=== PATIENT | female | born 1980 | race Two or more races ===

== ENCOUNTER 2024-04-08 20:59 | Emergency (ER) | payer MEDICAID, SELFPAY ==
[2024-04-08 21:01] VITALS: PULSE 87; RESP 16; O2SAT 98
[2024-04-08 21:04] VITALS: BMI 30.9
[2024-04-08 21:11] VITALS: BP 155/94; PULSE 78; RESP 14; TEMP 36.9; O2SAT 100
--- NOTE | 2024-04-08 21:50 | PD.EDALLER ---
ED Allergic Reaction RME/HPI General Chief complaint: Allergic Reaction Stated complaint: ALLERGIC REACTION Time Seen by Provider: 04/08/24 21:10 Arrival date/time: 04/08/24 20:59 This is a 43-year-old female that is brought in by ambulance with complaints of erythema around right eyebrow and eye. Patient states that she ran into a keen yesterday and it had debris/spinters on it. Patient states that some of them were stuck into her skin and she had to pull them out. Pt states there was approx 8 of them. Patient has a history of methamphetamine use in the past. Related Data Previous Rx's ?Medication ?Instructions ?Recorded acetaminophen 500 mg tablet 1,000 mg (2 x 500 mg) PO QID PRN 04/09/24 fever or pain #30 tabs amoxicillin 875 mg-potassium 1 tab PO Q12H periorbital 04/09/24 clavulanate 125 mg tablet cellulitis 10 days #20 tabs ibuprofen 600 mg tablet 600 mg PO Q6H PRN fever or pain 5 04/09/24 days #30 tabs Allergies Allergy/AdvReac Type Severity Reaction Status Date / Time No Known Allergies Allergy Verified 05/21/23 05:58 Review of Systems Review of Systems Systems Reviewed: All systems reviewed, normal except as documented Past Medical History Past Medical History NEUROLOGIC: Negative Neurological Disorders CARDIAC: Negative Cardiac Disorders GASTROINTESTINAL: Negative Gastrointestinal Disorders GENITOURINARY: Negative Genitourinary Disorders or Renal Disease REPRODUCTIVE: Positive Previous Pregnancies MUSCULOSKELETAL: Negative Musculoskeletal Disorders ENDOCRINE: Positive Diabetes Mellitus Type 2 (only gestational diabetes); Negative Endocrine Disorders PSYCHO/SOCIAL: Positive Recreational Drug Use OTHER HISTORY: Positive Blood Transfusions Family History FAMILY HISTORY: Positive Family Cancer Surgical History SURGICAL: Positive Section Social History SMOKING STATUS: Never smoker SECOND HAND EXPOSURE: Yes SUBSTANCE USE: marijuana and methamphetamine ED Exam General General appearance: Present alert and other (moderate distress ) Head Head exam: Present atraumatic Eye Eye exam: Present PERRL, EOMI and other (swelling and erythema around upper and lower eyelid. Swelling under eye swelling upper lid of right eye with erythema. Erythema and swelling around right eyebrow and right episcopal area, pain to light palpation, some scabs around but eyebrow, no drainage so she has chronic surgeon) ENT ENT exam: Present normal exam, normal oropharynx and mucous membranes moist Neck Neck exam: Present normal inspection, full ROM and trachea midline Chest Chest inspection: Present normal inspection and symmetric chest wall rise Respiratory Respiratory exam: Present normal lung sounds bilaterally Cardiovascular Cardiovascular exam: Present regular rate and normal rhythm Abdominal Exam Abdominal exam: Present soft and other (nontender ) Extremities Exam Extremities exam: Present normal inspection and full ROM Back Exam Back exam: Present normal inspection and full ROM Neurological Exam Neurological exam: Present alert and oriented X3 Psychiatric Psychiatric exam: Present normal affect and normal mood Skin Skin exam: Present warm, dry, intact and normal color Course Quality Measures none Orders Category Date Time Status CT Screening NOW Care 04/08/24 21:59 Completed IV [Insert IV] STAT Care 04/08/24 21:52 Completed Visual Acuity X1 Care 04/08/24 22:[address] orbit BI w con Stat Exams 04/08/24 21:58 Completed Blood Culture (Lab) Stat Lab 04/08/24 21:10 Results CBC Stat Lab 04/08/24 21:20 Completed CRP [C-Reactive Protein] Stat Lab 04/08/24 21:20 Completed Comprehensive Metabolic Panel Stat Lab 04/08/24 21:20 Completed HCG,Qualitative Serum Stat Lab 04/08/24 21:20 Completed Lactate (Lactic Acid) Stat Lab 04/08/24 22:40 Completed Path Review Blood Smear Stat Lab 04/08/24 21:20 Completed Procalcitonin Stat Lab 04/08/24 21:20 Completed Sed Rate (ESR) Stat Lab 04/08/24 21:20 Completed Ondansetron Inj [Zofran Inj] Med 04/08/24 22:01 Discontinued 4 mg IV X1 ONE Ondansetron Inj [Zofran Inj] Med 04/08/24 22:01 Discontinued 4 mg IV X1 ONE Piper/Tazo Inj [Zosyn Inj] 3.375 gm Med 04/08/24 21:58 Discontinued Sodium Chloride 0.9% (P) [Ns 0.9% (P)] 50 ml IV X1 Vancomycin Pharmacy to Dose Med 04/09/24 09:00 Discontinued 1 each IV QDAY Vancomycin/Ns 1 gm Ivpb 200 ml Med 04/08/24 22:15 Discontinued IV Q100M fentaNYL INJ [Sublimaze Inj] Med 04/08/24 22:01 Discontinued 50 mcg IM X1 ONE fentaNYL INJ [Sublimaze Inj] Med 04/08/24 22:06 Discontinued 50 mcg IVP X1 ONE Vital Signs Vital signs: Vital Signs Temperature 98.5 F 04/08/24 21:11 Pulse Rate 78 04/08/24 21:11 Respiratory Rate 14 04/08/24 21:11 Blood Pressure 155/94 H 04/08/24 21:11 Pulse Oximetry (%) 100 04/08/24 21:11 Oxygen Delivery Method Room Air 04/08/24 21:11 Allergic Reaction MDM Narrative MDM Narrative:: will assume care at 11 PM. Labs pending and CT of the orbits pending. Patient data External records reviewed:: [facility] previous records Clinical information provided by:: patient Social determinants that could affect healthcare access:: none Patient has the following chronic illnesses:: none How is presenting disease/condition affected by chronic disease/condition?: no chronic disease Evaluation data The following diagnostics were reviewed and interpreted by me:: lab results and radiology exam(s) Lab and/or radiology exams considered but not ordered:: none Interpretation Summary: see note Medications / Prescriptions Medications or Prescriptions considered but not ordered:: none Medication administrations:: Medication Administration History Discontinued Medications Fentanyl Citrate (Fentanyl Cit Inj 50 Mcg/Ml Amp 2ml) 50 mcg IM X1 ONE Stop: 04/08/24 22:02 Last Admin: 04/08/24 22:06 Dose: Not Given Documented By: HERBERTH Non-Admin Reason: ORDER REPLACED Fentanyl Citrate (Fentanyl Cit Inj 50 Mcg/Ml Amp 2ml) 50 mcg IVP X1 ONE Stop: 04/08/24 22:07 Last Admin: 04/08/24 22:12 Dose: 50 mcg Documented By: HERBERTH Piperacillin Sod/Tazobactam (Sod 3.375 gm/ Sodium Chloride) 50 mls @ 100 mls/hr IV X1 ONE Stop: 04/08/24 22:27 Last Infusion: 04/08/24 22:43 Dose: Infused Documented By: Admin: 04/08/24 22:12 Dose: 100 mls/hr Documented By: HERBERTH Vancomycin/Sodium Chloride (Vancomycin/Ns 1 Gm Ivpb) 200 mls @ 120 mls/hr IV Q100M VASHTI Stop: 04/09/24 01:34 Last Infusion: 04/09/24 00:58 Dose: Infused Documented By: Admin: 04/09/24 00:13 Dose: Not Given Documented By: HERBERTH Non-Admin Reason: Cancelled by Provider Admin: 04/08/24 22:45 Dose: 120 mls/hr Documented By: HERBERTH Ondansetron HCl (Ondansetron Inj 2 Mg/Ml Inj 2 Ml) 4 mg IV X1 ONE; Protocol Stop: 04/08/24 22:02 Last Admin: 04/08/24 22:12 Dose: 4 mg Documented By: HERBERTH Ondansetron HCl (Ondansetron Inj 2 Mg/Ml Inj 2 Ml) 4 mg IV X1 ONE; Protocol Stop: 04/08/24 22:02 Last Admin: 04/08/24 22:15 Dose: Not Given Documented By: HERBERTH Non-Admin Reason: Duplicate Medication on eMAR Pharmacy Consult (Vancomycin Pharmacy To Dose 1 Each Each) 1 each IV QDAY VASHTI Stop: 05/09/24 08:59 see [facility] Consultations Consultation(s) initiated? (list below): No Diagnosis Most likely diagnosis given after review of the tests above:: periorbital cellulitis Admission Indicated Admission indicated?: not indicated Admission Request Was there a request for admission?: No Disposition Plan Disposition Plan: Discharge Discharge Attestation Discharge Attestation: The patient and all family members were given an opportunity to ask questions and understood the discharge instructions. Discharge instructions specifically effects, indications for sooner follow up or return to the emergency department, and the expected course of current diagnosis. Patient condition: Stable Discharge Plan Plan Patient Disposition: HOME (Self Care) Disposition Comment: Stable for discharge Patient condition on transfer: Stable Prescriptions/Referrals Prescriptions/Med Rec: New amoxicillin-pot clavulanate 875-125 mg tablet 1 tab PO Q12H 10 Days Qty: 20 0RF acetaminophen 500 mg tablet 1,000 mg PO QID PRN (Reason: fever or pain) Qty: 30 0RF ibuprofen 600 mg tablet 600 mg PO Q6H PRN (Reason: fever or pain) 5 Days Qty: 30 0RF Referrals: Hay Vail MD [Primary Care Provider] - In 1 week Problem List Clinical Impression: Cellulitis, periorbital Patient/Caregiver Discharge Instructions Discharge Activity: activity as tolerated Education Materials: ED Periorbital Cellulitis Additional Instructions: Please return to the emergency department for any worsening or any further medical problems You should pay particular attention to your eye. If you develop pain with just looking around the room then you should definitely come back to the emergency department right away also if you have any visual disturbances return to the ER immediately Be sure to take all of your antibiotics as directed until they are completely gone even if you feel better before that. Please take the Motrin and Tylenol for pain and or fever as directed. Follow-up with your primary care doctor within the next several days please Print Language: Maori Stand Alone Forms: Sophia Award Info., Patient Portal Info Letter PA/RECORD PRODUCER Supervising Physician PA/RECORD PRODUCER Supervising Physician: chiara
--- NOTE | 2024-04-08 21:58 | XR_ITS ---
Examination: CT of orbits, without intravenous contrast. 2-D sagittal reconstructions. 3-D reconstructions. Date and time of exam:April 08, 2024 1121 hrs. Indications: Redness swelling and pain involving the orbits today CTDI: vol (mGy):14.51 DLP: (mGycm):247 Technique: Multiple axial images of maxillofacial region, 3.0 mm slice thickness. 2-D sagittal and coronal reconstructions. 3-D reconstructions. Low dose protocols were performed. One or more of the following dose reduction techniques were used; automated exposure control, adjustment of the mA and/or KV according to patient size, use of iterative reconstruction technique. Findings: Orbital rims appear intact Pronounced soft tissue swelling anterior and lateral to the right optic globe The optic globes however appear intact with no retro-orbital abscess or inflammatory change No soft tissue swelling extends primarily above the right orbit anterior to the frontal bone No foreign body No cortical bone destruction No monik fluid-filled abscess Diffuse edema in the right face including external to the right zygomatic arch right maxilla Impression: Soft tissue swelling anterior and lateral to the right optic globe, anterior to the right frontal bone with diffuse right facial cellulitis No monik soft tissue abscess. The optic globes appear intact No foreign body
[2024-04-08] MEDS: ONDANSETRON INJ 2 MG/ML INJ 2 ML 4 MG IV (22:12)
[2024-04-08] MEDS: PIPER/TAZO INJ 3.375 GM in SODIUM CHLORIDE 0.9% (P) 50 ML IV (22:12)
[2024-04-08] MEDS: fentaNYL CIT INJ 50 mCg/ML AMP 2ML IVP (22:12)
[2024-04-08 22:31] LABS: Basophils # (Auto) 0.1 Thou/mm3 (0.0-0.2); Basophils % (Auto) 0 % (0-2.5); Eosinophils # (Auto) 0.1 Thou/mm3 (0.0-0.5); Eosinophils % (Auto) 1 % (0-10); Hematocrit 31.4 % (36.0-46.0); Hemoglobin 9.4 g/dL (12.0-16.0); Immature Granulocytes % (Auto) 0 % (0-0); Immature Granulocytes Auto 0.05 Thou/mm3 (0.00-0.00); Lymphocytes % (Auto) 14 % (10-50); Mean Corpuscular HGB Conc 29.9 g/dl (31.0-37.0); Mean Corpuscular Hemoglobin 20.2 pg (25.0-35.0); Mean Corpuscular Volume 67 fL (80-100); Monocytes # (Auto) 0.9 Thou/mm3 (0.0-0.8); Monocytes % (Auto) 6 % (0-12); Neutrophils # (Auto) 11.2 Thou/mm3 (1.8-7.7); Neutrophils % (Auto) 79 % (37-80); Nucleated Red Blood Cell % 0 /100 WBC (0); Platelet Count 452 Thou/mm3 (140-440); RDW Standard Deviation 43.4 fL (36.4-46.3); Red Blood Count 4.66 Miln/mm3 (4.00-5.20); White Blood Count 14.3 Thou/mm3 (3.6-11.0)
[2024-04-08 22:42] LABS: Sed Rate (ESR) 58 mm/hr (0-20)
[2024-04-08] MEDS: VANCOMYCIN/NS 1 GM IVPB 200 ML IV (22:45)
[2024-04-08 22:49] LABS: Lactate (Lactic Acid) 0.6 mMol/L (0.4-2.0)
[2024-04-08 23:02] LABS: Alanine Aminotransferase 13 U/L (10-49); Albumin, Serum 4.3 gm/dL (3.5-5.0); Albumin/Globulin Ratio 1.4 (1.2-2.2); Alkaline Phosphatase 82 U/L (46-116); Anion Gap 5 (7-16); Aspartate Amino Transferase 16 U/L (0-34); BUN/Creatinine Ratio 30 Ratio (12-20); Bilirubin,Total 0.5 mg/dL (0.3-1.2); Blood Urea Nitrogen 21 mg/dL (9-23); Calcium 9.5 mg/dL (8.3-10.6); Calcium (Corrected) 9.5 mg/dL (8.5-10.1); Carbon Dioxide 27.2 mMol/L (20.0-31.0); Chloride 107 mMol/L (98-107); Creatinine (Component) 0.7 mg/dL (0.6-1.3); Estimated Creatinine Clearance 108.2 mL/min (>60); Glucose 84 mg/dL (74-106); Osmolality,Calculated 279 (275-295); Potassium 3.4 mMol/L (3.4-5.1); Sodium 139 mMol/L (136-145); Total Protein 7.3 gm/dL (5.7-8.2); eGFR > 60 See Note
[2024-04-08 23:08] LABS: HCG,Qualitative Serum Negative
[2024-04-08 23:27] LABS: Procalcitonin < 0.04 ng/ml (0.0-0.49)
--- NOTE | 2024-04-09 00:06 | PD.EDADDENDU ---
Emergency Room Addendum Addendum Narrative: 2300: Care assumed from Felipa Alfaro NP. Past medical, surgical, social and family history reviewed. Vitals and home medications reviewed. Results and treatment plan discussed. I will assume the care of the patient at this time, pending CT scan results. Please refer to the emergency department record for history and examination. CT scan results as below. Patient is stable to be discharged home at this time. RADIOLOGY RESULTS: [facility] Report Signed Patient: OLGA VALDES [facility].Record#: [id number] Birthdate: 1980 Age/Sex: 43 / F Location: [facility] Attending Dr: Ordering Physician: Felipa Alfaro NP Date of Service: 04/08/24 Procedure(s): CT orbit NIURKA yi Accession Number(s): [id number] cc: Hay Vail MD; Jose Levi MD; Felipa Alfaro NP~ Examination: CT of orbits, without intravenous contrast. 2-D sagittal reconstructions. 3-D reconstructions. Date and time of exam:April 08, 2024 1121 hrs. Indications: Redness swelling and pain involving the orbits today CTDI: vol (mGy):14.51 DLP: (mGycm):247 Technique: Multiple axial images of maxillofacial region, 3.0 mm slice thickness. 2-D sagittal and coronal reconstructions. 3-D reconstructions. Low dose protocols were performed. One or more of the following dose reduction techniques were used; automated exposure control, adjustment of the mA and/or KV according to patient size, use of iterative reconstruction technique. Findings: Orbital rims appear intact Pronounced soft tissue swelling anterior and lateral to the right optic globe The optic globes however appear intact with no retro-orbital abscess or inflammatory change No soft tissue swelling extends primarily above the right orbit anterior to the frontal bone No foreign body No cortical bone destruction No monik fluid-filled abscess Diffuse edema in the right face including external to the right zygomatic arch right maxilla Impression: Soft tissue swelling anterior and lateral to the right optic globe, anterior to the right frontal bone with diffuse right facial cellulitis No monik soft tissue abscess. The optic globes appear intact No foreign body Dictated By: Jose Levi MD Signed By: <Electronically signed by Jose Levi MD in OV> 04/08/24 2470 Critical Care Time: 35 minutes The high probability of sudden, clinically significant deterioration in the patient?s condition required the highest level of my preparedness to intervene urgently. The services I provided to this patient were to treat and/or prevent clinically significant deterioration. Services included the following: chart data review, reviewing nursing notes and/or old charts, documentation time, data warehouse consultant collaboration regarding findings and treatment options, medication orders and management, direct patient care, vital sign assessments and ordering, interpreting and reviewing diagnostic studies and lab tests. Aggregate critical care time includes only time during which I was engaged in work directly related to the patient?s care, as described above, whether at bedside or elsewhere in the Emergency Department. It did not include time spent performing other reported procedures or the services of residents, students, nurses or physician assistants.
[2024-04-09 00:29] VITALS: BP 124/96; PULSE 69; RESP 19; TEMP 36.4; O2SAT 100
[2024-04-09 03:12] LABS: C-Reactive Protein 0.8 mg/dL (0.0-0.9)
[2024-04-09 05:19] LABS: Path Review Blood Smear Sent to Pathologist
== END 2024-04-09 01:07 | disposition home or self-care (01) ==
PROVIDERS: Nurse Practitioner Family; Emergency Provider Emergency Medicine; PCP Family Medicine
DX: L03.213 Periorbital cellulitis (principal)
CPT/HCPCS: 36415; 70481; 80053; 80307; 81001; 83605; 84145; 84703; 85025; 85652; 86140; 87040; 96365; 96366; 96375; 99291; A4649; J2405; J2543; J3010; J3370; J7050; Q9967

== ENCOUNTER 2024-11-29 20:55 | Emergency (ER) | payer MEDICAID, SELFPAY ==
[2024-11-29 21:06] VITALS: BP 135/86; PULSE 103; RESP 20; TEMP 37.2; O2SAT 98
--- NOTE | 2024-11-29 21:10 | XR_ITS ---
Examination: CT brain head without contrast. 2-D sagittal coronal reconstructions Date and time of exam:November 29, 2024, 2148 hours Comparison May 21, 2023 INDICATIONS: Painful lump on the top of the head CTDI: vol (mGy):47.8 DLP: (mGycm):965 Technique: Multiple CT axial sections of the brain have been obtained, 5 mm slice thickness. Contrast has not been administered. 2-D sagittal, coronal reconstructions have been obtained Low dose protocols were performed. One or more of the following dose reduction techniques were used; automated exposure control, adjustment of the mA and/or KV according to patient size, use of iterative reconstruction technique. Findings: No significant ventricular enlargement. Intra-axial or extra-axial hemorrhage density is not seen. No mass effect or midline shift Basal cisterns are not remarkable. Fourth ventricle is midline. Cranial vault intact. Soft tissue swelling parietal scalp which may represent infection Impression: Negative for acute hemorrhage, mass effect or midline shift
--- NOTE | 2024-11-29 22:39 | EDNOTE_ITS ---
ED Skin Abcess FB-RME/HPI General Chief complaint: Skin/Abscess/Foreign Body Stated complaint: BIG HARD PAINUL LUMPT TOP OF HEAD Time Seen by Provider: 11/29/24 21:07 Arrival date/time: 11/29/24 20:55 This is a case of a 44-year-old female who came in the emergency room due to painful lump on the scalp occipital area patient history of present illness started yesterday when the patient felt something insect bite on the scalp and started to have pain redness and swelling on the area of the insect bite due to worsening of the pain this patient decided to sought consult here in the emergency room Limitations: no limitations Related Data Previous Rx's ?Medication ?Instructions ?Recorded acetaminophen 500 mg tablet 1,000 mg (2 x 500 mg) PO Q ID PRN 04/09/24 fever or pain #30 tabs clindamycin HCl 300 mg capsule 300 mg PO Q6H 10 days # 40 caps 11/29/24 ibuprofen 800 mg tablet 800 mg PO Q8H PRN pain #20 t abs 11/29/24 sulfamethoxazole 800 1 tab PO Q12H 10 days #20 ta bs 11/29/24 mg-trimethoprim 160 mg tablet (Bactrim DS) Allergies Allergy/AdvReac Type Severity Reaction Status Date / Time No Known Allergies Allergy Verified 11/29/24 21:00 Review of Systems Review of Systems Systems Reviewed: All systems reviewed, normal except as documented Constitutional Constitutional: Reports system reviewed and no additional complaints, except as documented, Reports as per HPI, Denies chills and Denies fever(s) Cardiovascular Cardiovascular: Reports system reviewed and no additional complaints, except as documented and Reports as per HPI Respiratory Respiratory: Reports system reviewed and no additional complaints, except as documented and Reports as per HPI Gastrointestinal Gastrointestinal: Reports system reviewed and no additional complaints, except as documented and Reports as per HPI Genitourinary Genitourinary: Reports system reviewed and no additional complaints, except as documented and Reports as per HPI Musculoskeletal Musculoskeletal: Reports system reviewed and no additional complaints, except as documented and Reports as per HPI Integumentary/Breasts Skin/Breast: Reports other (Abscess pain) Neurologic Neurologic: Reports system reviewed and no additional complaints, except as documented and Reports as per HPI Past Medical History Past Medical History NEUROLOGIC: Negative Neurological Disorders CARDIAC: Positive Hypertension; Negative Cardiac Disorders or Congestive Heart Failure RESPIRATORY: Negative Chronic Obstructive Pulmonary Disease (COPD) or Asthma GASTROINTESTINAL: Negative Gastrointestinal Disorders or Hepatitis GENITOURINARY: Negative Genitourinary Disorders or Renal Disease REPRODUCTIVE: Positive Previous Pregnancies MUSCULOSKELETAL: Negative Musculoskeletal Disorders ENDOCRINE: Positive Diabetes Mellitus Type 2 (only gestational diabetes); Negative Endocrine Disorders or Diabetes Mellitus Type 1 HEMATOLOGIC: Negative Blood Disorders or Sickle Cell Disease PSYCHO/SOCIAL: Positive Recreational Drug Use OTHER HISTORY: Positive Hospitalization and Blood Transfusions; Negative Autoimmune Disease, Down Syndrome, Shingles, Falls, Blood Transfusion Reaction, Anesthesia Reactions, Human Immunodeficiency Virus (HIV) or Cancer Family History FAMILY HISTORY: Positive Family Cancer Surgical History SURGICAL: Positive Section Social History SMOKING STATUS: Never smoker SECOND HAND EXPOSURE: Yes SUBSTANCE USE: marijuana and methamphetamine ED Exam General Limitations: Present no limitations General appearance: Present alert, in no apparent distress and other (Patient is awake alert oriented not in distress nontoxic looking) Head Head exam: Present atraumatic, normocephalic, normal inspection and other (Noted a lump approximately 2 cm tender to touch soft to touch suggestive of abscess no crepitation no deformity with redness and swelling) Eye Eye exam: Present normal appearance, PERRL and EOMI ENT ENT exam: Present normal exam, normal oropharynx and mucous membranes moist Neck Neck exam: Present normal inspection, full ROM and trachea midline Chest Chest inspection: Present normal inspection and symmetric chest wall rise Respiratory Respiratory exam: Present normal lung sounds bilaterally; Absent respiratory distress, wheezes, stridor, accessory muscle use or prolonged expiratory phase Cardiovascular Cardiovascular exam: Present regular rate, normal rhythm and normal heart sounds; Absent bradycardia, tachycardia, irregular rhythm, systolic murmur or diastolic murmur Abdominal Exam Abdominal exam: Present soft and normal bowel sounds; Absent distention, tenderness, guarding, rebound, rigidity, diminished bowel sounds, hyperactive bowel sounds or hypoactive bowel sounds Extremities Exam Extremities exam: Present normal inspection and full ROM Back Exam Back exam: Present normal inspection and full ROM Neurological Exam Neurological exam: Present alert, oriented X3, CN II-XII intact, normal gait and reflexes normal; Absent motor sensory deficit Psychiatric Psychiatric exam: Present normal affect and normal mood Skin Skin exam: Present warm, dry, intact, normal color and other (Noted 2 cm lump on the scalp occipital area tender and soft to touch no fluctuance not indurated no cellulitis suggestive of abscess) Course Quality Measures none Orders Category Date Time Status CT head/brain wo con Stat Exams 11/29/24 21:10 Completed Clindamycin Vial [Cleocin vial] Med 11/29/24 22:38 Discontinued 600 mg IM X1 ONE HYDROcodone*/APAP 5/325 [[place] 5/325] Med 11/29/24 22:38 Discontinued 1 tab PO X1 ONE Vital Signs Vital signs: Vital Signs Temperature 98.9 F 11/29/24 21:06 Pulse Rate 103 H 11/29/24 21:06 Respiratory Rate 20 11/29/24 21:06 Blood Pressure 135/86 H 11/29/24 21:06 Pulse Oximetry (%) 98 11/29/24 21:06 Oxygen Delivery Method Room Air 11/29/24 21:06 Patient is afebrile not tachycardic not tachypneic BP stable not hypoxic oxygen saturation 98% in room air Skin / Abscess / Foreign Body MDM Narrative MDM Narrative:: This is a case of a 44-year-old female who came in the emergency room due to painful lump on the scalp occipital area patient history of present illness started yesterday when the patient felt something insect bite on the scalp and started to have pain redness and swelling on the area of the insect bite due to worsening of the pain this patient decided to sought consult here in the emergency room physical examination patient is awake alert oriented not in distress nontoxic looking patient noted to have 2 cm lump on the scalp occipital area tender to touch soft to touch moderate tenderness with swelling and redness no fluctuance nonindurated suggestive of abscess no cellulitis the rest of the physical examination and neurological exam is normal and unremarkable patient at the time of exam no indication for incision and drainage patient will be started on antibiotic patient was given clindamycin mycin IM here in the emergency room and [place] for pain patient was prescribed with Bactrim and clindamycin to be taken for 10 days and ibuprofen for pain patient was advised to return in 2 days for evaluation and possible incision and drainage for any worsening symptoms or any emergent concerns she will return in the emergency room immediately or call [address] scan showed a soft tissue swelling on the scalp parietal area suggestive of infection/abscess Patient was discharged with comfortable condition walking with stable gait. Patient verbalized no further complains explained diagnosis and answered patient question. Patient is comfortable with the proposed management plan including the need to follow up with his/her primary care physician and any specialist if applicable Discussed patient for any urgent condition or worsening sx, He/She needed to go to emergency room immediately or call 911. Patient acknowledge the responsibility to follow up as instructed and to monitor her/his symptoms. For any persistence of the symptoms for more than 3-5 days return precaution advised. Discussed the result of the test and was given printed discharge instruction Patient data External records reviewed:: [facility] previous records Clinical information provided by:: patient Social determinants that could affect healthcare access:: none Patient has the following chronic illnesses:: None How is presenting disease/condition affected by chronic disease/condition?: no chronic disease Evaluation data The following diagnostics were reviewed and interpreted by me:: radiology exam(s) Lab and/or radiology exams considered but not ordered:: Reviewed Interpretation Summary: Reviewed Medications / Prescriptions Medications or Prescriptions considered but not ordered:: Given Medication administrations:: Medication Administration History Discontinued Medications Hydrocodone Bitart/Acetaminophen (Hydrocodone/[place] 5/325 Tablet) 1 tab PO X1 ONE Stop: 11/29/24 22:39 Clindamycin Phosphate (Clindamycin Phos Inj 150 Mg/Ml Vial 6 Ml) 600 mg IM X1 ONE Stop: 11/29/24 22:39 Given Consultations Consultation(s) initiated? (list below): No Diagnosis Skin/Abscess Differential Diagnosis: abscess of skin or subcutaneous tissue, cellulitis, insect bites and contact dermatitis Most likely diagnosis given after review of the tests above:: Abscess scalp Admission Indicated Admission indicated?: not indicated Explain why admission is indicated or not indicated:: Not indicated Admission Request Was there a request for admission?: No Admission Attestation Admission request attestation: Not indicated Disposition Plan Disposition Plan: Discharge Discharge Attestation Discharge Attestation: The patient and all family members were given an opportunity to ask questions and understood the discharge instructions. Discharge instructions specifically effects, indications for sooner follow up or return to the emergency department, and the expected course of current diagnosis. Patient condition: Stable Discharge Plan Plan Patient Disposition: HOME (Self Care) Prescriptions/Referrals Prescriptions/Med Rec: New clindamycin HCl 300 mg capsule 300 mg PO Q6H 10 Days Qty: 40 0RF sulfamethoxazole-trimethoprim [Bactrim DS] 800-160 mg tablet 1 tab PO Q12H 10 Days Qty: 20 0RF ibuprofen 800 mg tablet 800 mg PO Q8H PRN (Reason: pain) Qty: 20 0RF No Action acetaminophen 500 mg tablet 1,000 mg PO QID PRN (Reason: fever or pain) Qty: 30 0RF Referrals: Hay Vial MD [Primary Care Provider] - In 1 week Problem List Clinical Impression: Scalp abscess, Insect bite Patient/Caregiver Discharge Instructions Education Materials: ED Abscess Antibiotic ..., ED Insect Bite Additional Instructions: Follow-up with your primary care physician in 2 days for reevaluation return in the emergency room in 2 days for reevaluation and possible incision and drainage worsening symptoms or any emergent concern call 911 or go to the nearest emergency room take your medication as directed finish the course of antibiotic Print Language: Norwegian Stand Alone Forms: Sophia Award Info., Patient Portal Info Letter PA/COLOR CONTROL SUPERVISOR Supervising Physician PA/COLOR CONTROL SUPERVISOR Supervising Physician: DR townsend
[2024-11-29] MEDS: HYDROcodone/APAP 5/325 TABLET 1 TAB PO (23:01)
[2024-11-29] MEDS: CLINDAMYCIN PHOS INJ 150 MG/ML VIAL 6 ML 600 MG IM (23:04)
[2024-11-29 23:33] VITALS: RESP 18
== END 2024-11-29 23:34 | disposition home or self-care (01) ==
PROVIDERS: Emergency Provider Emergency Medicine; PCP Family Medicine
DX: L02.811 Cutaneous abscess of head [any part, except face] (principal); S00.06XA Insect bite (nonvenomous) of scalp, initial encounter; W57.XXXA Bitten or stung by nonvenomous insect and other nonvenomous arthropods, initial encounter
CPT/HCPCS: 70450; 99283; J0736; A9270